=== PATIENT | male | born 1995 | race African-American/Black ===

== ENCOUNTER 2024-08-16 18:44 | Emergency (ER) | payer OTHER, SELFPAY ==
[2024-08-16] MEDS ORDERED: Lidocaine 1% w/Epinephrine 1:200K 30 ML VIAL ONE (20:36)
== END 2024-08-16 21:20 | disposition home or self-care (01) ==
LOC: CSHERS 18:44
DX: L02.31 Cutaneous abscess of buttock (principal); F17.210 Nicotine dependence, cigarettes, uncomplicated
CPT/HCPCS: 10060; 99283